=== PATIENT | male | born 1960 | race Caucasian/White ===

== ENCOUNTER 2017-09-15 09:31 | Inpatient (IN) | payer MEDICARE, MEDICAID ==
[~2017-09-15] VITALS: Ht 182.9 cm; Wt 67.0 kg
[~2017-09-15 09:31] MED LIST: ATOV750O2 PO; DARU800T PO; DIPH25CA83 PO; EMTR1TAB6 PO; HYDR-3972 PO; LINE600T36 PO; RITO100T PO
[2017-09-15] MEDS ORDERED: ipratropium/albuterol 3ml nebule NEB ONE (10:50)
[2017-09-15 11:15] LABS: BASOPHILS % (AUTO) 0.1 % (0-1); EOSINOPHILS % (AUTO) 0.7 % (0-6); HEMATOCRIT 37.5 % (42.0-52.0); HEMOGLOBIN 12.7 g/dl (14.0-17.9); LYMPHOCYTES # (AUTO) 0.5 X10'3 (1.1-4.8); LYMPHOCYTES % (AUTO) 13.5 % (21-51); MEAN CORPUSCULAR HEMOGLOBIN 30.2 PG (27.0-31.0); MEAN CORPUSCULAR HGB CONC 33.8 % (33.0-36.5); MEAN CORPUSCULAR VOLUME 89.5 FL (78-98); MEAN PLATELET VOLUME 7.6 FL (7.4-10.4); MONOCYTES # (AUTO) 0.4 X10'3 (0-0.9); MONOCYTES % (AUTO) 9.2 % (2-12); NEUTROPHILS % (AUTO) 76.5 % (42-75); PLATELET COUNT 240 X10'3 (140-440); RED BLOOD COUNT 4.19 X10'6 (4.70-6.10); RED CELL DISTRIBUTION WIDTH 13.3 % (11.5-14.5)
[2017-09-15 11:34] LABS: ALANINE AMINOTRANSFERASE 26 U/L (12-78); ALBUMIN 2.8 G/DL (3.4-5.0); ALBUMIN/GLOBULIN RATIO 0.7 (1.1-1.5); ALKALINE PHOSPHATASE 98 IU/L (46-116); ANION GAP 9 (8-16); ASPARTATE AMINO TRANSFERASE 24 U/L (10-37); BILIRUBIN,TOTAL 0.2 MG/DL (0.1-1.0); BLOOD UREA NITROGEN 7 MG/DL (7-18); BUN/CREATININE RATIO 10.6 (5.4-32.0); CALCIUM 8.3 MG/DL (8.5-10.1); CHLORIDE 105 MMOL/L (99-107); CREATININE 0.66 MG/DL (0.60-1.10); GLUCOSE 104 MG/DL (70-104); POTASSIUM 3.7 MMOL/L (3.5-5.1); SODIUM 141 MMOL/L (135-145); TOTAL PROTEIN 6.8 G/DL (6.4-8.2); eGFR > 90 ML/MIN
[2017-09-15 11:36] LABS: TOTAL CELLS COUNTED 100
[2017-09-15 11:38] LABS: BURR CELLS FEW; PLATELET ESTIMATE NORMAL
[2017-09-15] MEDS ORDERED: normal saline 1000ML IV soln IV ONE (11:40)
[2017-09-15] MEDS ORDERED: vancomycin/NS 1 GM ADD-VANTAGE 250 ML IV ONE (11:45)
[2017-09-15] MEDS ORDERED: levoFLOXACIN-Levaquin 750MG/D5 150 ML IV ONE (11:45)
[2017-09-15] MEDS ORDERED: magnesium 2GM in 50ml NS 50 ML IV PRN (13:45)
[2017-09-15] MEDS ORDERED: potassium Cl 40MEQ/NS 500ml 500 ML IV PRN ×2 (13:45)
[2017-09-15] MEDS ORDERED: mag hydrox/Alum hydrox/simeth 30ml oral suspension PO PRN (13:45)
[2017-09-15] MEDS ORDERED: magnesium Cl slow-release 64mg tablet PO PRN (13:45)
[2017-09-15] MEDS ORDERED: HYDROcodone/acetaminophen 5mg/325mg tablet PO PRN (13:45)
[2017-09-15] MEDS ORDERED: acetaminophen 325mg tablet PO PRN (13:45)
[2017-09-15] MEDS ORDERED: ondansetron/PF 4mg/2ml inj IV PRN (13:45)
[2017-09-15] MEDS ORDERED: bisacodyl 10mg suppository rectal RC PRN (13:45)
[2017-09-15] MEDS ORDERED: potassium Cl 20 mEq SR tablet PO PRN ×2 (13:45)
[2017-09-15] MEDS ORDERED: magnesium hydroxide 30ml (MOM) UD suspension PO PRN (13:45)
[2017-09-15] MEDS ORDERED: magnesium 4gm in 100ml NS 100 ML IV PRN (13:45)
[2017-09-15] MEDS ORDERED: AZIT-63 PO (13:55)
[2017-09-15] MEDS: potassium Cl 20mEq in NS 1,000 ML IV SCH ×2 (14:03→23:43)
[2017-09-15] MEDS: sulfamethoxazole/trimethoprim DS (800/160mg) tablet PO SCH ×2 (14:44→20:44)
[2017-09-15] MEDS: fluconazole 100mg tablet PO SCH (14:44)
[2017-09-15] MEDS ORDERED: NO HOME MEDS (17:21)
[2017-09-15 17:57] VITALS: BP 114/70
[2017-09-15] MEDS ORDERED: FLU VACC QS2017-18 36MOS UP/PF 60 MCG/0.5 ML SYRINGE IMVAC ONE (18:10)
[2017-09-15 19:00] VITALS: BP 118/71
[2017-09-15] MEDS: docusate sod 100mg capsule PO SCH (20:00)
[2017-09-15] MEDS: nystatin 500,000 unit/5ML UD oral suspension PO SCH (20:42)
[2017-09-15] MEDS ORDERED: HYDROcodone/acetaminophen 10/325mg tab PO PRN (23:15)
[2017-09-16] VITALS: BP 119/73
[2017-09-16] MEDS: potassium Cl 20mEq in NS 1,000 ML IV SCH ×2 (04:03→14:58)
[2017-09-16 05:15] LABS: BASOPHILS % (AUTO) 0.5 % (0-1); EOSINOPHILS % (AUTO) 0.9 % (0-6); HEMATOCRIT 36.7 % (42.0-52.0); HEMOGLOBIN 12.3 g/dl (14.0-17.9); LYMPHOCYTES # (AUTO) 0.9 X10'3 (1.1-4.8); LYMPHOCYTES % (AUTO) 25.6 % (21-51); MEAN CORPUSCULAR HEMOGLOBIN 29.9 PG (27.0-31.0); MEAN CORPUSCULAR HGB CONC 33.5 % (33.0-36.5); MEAN CORPUSCULAR VOLUME 89.3 FL (78-98); MEAN PLATELET VOLUME 8.3 FL (7.4-10.4); MONOCYTES # (AUTO) 0.3 X10'3 (0-0.9); MONOCYTES % (AUTO) 9.8 % (2-12); NEUTROPHILS # (AUTO) 2.1 X10'3 (1.8-7.7); NEUTROPHILS % (AUTO) 63.2 % (42-75); PLATELET COUNT 227 X10'3 (140-440); RED BLOOD COUNT 4.11 X10'6 (4.70-6.10); RED CELL DISTRIBUTION WIDTH 13.5 % (11.5-14.5); WHITE BLOOD COUNT 3.4 X10'3 (4.5-11.0)
[2017-09-16 05:35] LABS: ALANINE AMINOTRANSFERASE 29 U/L (12-78); ALBUMIN 2.6 G/DL (3.4-5.0); ALBUMIN/GLOBULIN RATIO 0.7 (1.1-1.5); ALKALINE PHOSPHATASE 94 IU/L (46-116); ANION GAP 9 (8-16); ASPARTATE AMINO TRANSFERASE 21 U/L (10-37); BILIRUBIN,TOTAL 0.1 MG/DL (0.1-1.0); BLOOD UREA NITROGEN 8 MG/DL (7-18); BUN/CREATININE RATIO 10.5 (5.4-32.0); CALCIUM 8.2 MG/DL (8.5-10.1); CHLORIDE 107 MMOL/L (99-107); CREATININE 0.76 MG/DL (0.60-1.10); GLUCOSE 85 MG/DL (70-104); MAGNESIUM 1.8 MG/DL (1.5-2.4); POTASSIUM 4.2 MMOL/L (3.5-5.1); SODIUM 143 MMOL/L (135-145); TOTAL CARBON DIOXIDE 27.2 MMOL/L (24-32); TOTAL PROTEIN 6.3 G/DL (6.4-8.2); eGFR > 90 ML/MIN
[2017-09-16 07:00] VITALS: BP 112/56
[2017-09-16] MEDS: nystatin 500,000 unit/5ML UD oral suspension PO SCH ×2 (08:00→12:53)
[2017-09-16] MEDS: K and/or MAG REPLACEMENT MC SCH (08:00)
[2017-09-16] MEDS: enoxaparin 40mg/0.4ml syringe SUBCUT SCH (08:00)
[2017-09-16] MEDS: docusate sod 100mg capsule PO SCH ×2 (08:00→19:53)
[2017-09-16] MEDS: levoFLOXACIN-Levaquin 750MG/D5 150 ML IV SCH (08:38)
[2017-09-16] MEDS: sulfamethoxazole/trimethoprim DS (800/160mg) tablet PO SCH ×2 (08:39→19:46)
[2017-09-16] MEDS: fluconazole 100mg tablet PO SCH (08:39)
[2017-09-16] MEDS: nicotine 14mg patch - 24hr TD SCH (08:41)
[2017-09-16 11:00] VITALS: BP 108/71
[2017-09-16 13:54] LABS: LACTATE DEHYDROGENASE 145 U/L (85-227)
[2017-09-16 19:00] VITALS: BP 115/72
[2017-09-16] MEDS: HYDROcodone/acetaminophen 10/325mg tab PO PRN (21:43)
[2017-09-17] VITALS: BP 123/78
[2017-09-17] MEDS: potassium Cl 20mEq in NS 1,000 ML IV SCH (03:24)
[2017-09-17] MEDS: HYDROcodone/acetaminophen 10/325mg tab PO PRN (04:57)
[2017-09-17 05:25] LABS: BASOPHILS % (AUTO) 0.6 % (0-1); EOSINOPHILS # (AUTO) 0.1 X10'3 (0-0.9); EOSINOPHILS % (AUTO) 1.5 % (0-6); HEMOGLOBIN 13.6 g/dl (14.0-17.9); LYMPHOCYTES % (AUTO) 25.2 % (21-51); MEAN CORPUSCULAR HEMOGLOBIN 30.1 PG (27.0-31.0); MEAN CORPUSCULAR HGB CONC 34.1 % (33.0-36.5); MEAN CORPUSCULAR VOLUME 88.4 FL (78-98); MEAN PLATELET VOLUME 8.1 FL (7.4-10.4); MONOCYTES # (AUTO) 0.3 X10'3 (0-0.9); MONOCYTES % (AUTO) 8.2 % (2-12); NEUTROPHILS # (AUTO) 2.5 X10'3 (1.8-7.7); NEUTROPHILS % (AUTO) 64.5 % (42-75); PLATELET COUNT 286 X10'3 (140-440); RED BLOOD COUNT 4.52 X10'6 (4.70-6.10); RED CELL DISTRIBUTION WIDTH 13.7 % (11.5-14.5); WHITE BLOOD COUNT 3.8 X10'3 (4.5-11.0)
[2017-09-17 05:37] LABS: ALANINE AMINOTRANSFERASE 38 U/L (12-78); ALBUMIN 2.9 G/DL (3.4-5.0); ALBUMIN/GLOBULIN RATIO 0.7 (1.1-1.5); ALKALINE PHOSPHATASE 109 IU/L (46-116); ANION GAP 8 (8-16); ASPARTATE AMINO TRANSFERASE 22 U/L (10-37); BILIRUBIN,TOTAL 0.1 MG/DL (0.1-1.0); BLOOD UREA NITROGEN 14 MG/DL (7-18); BUN/CREATININE RATIO 19.4 (5.4-32.0); CALCIUM 8.2 MG/DL (8.5-10.1); CHLORIDE 103 MMOL/L (99-107); CREATININE 0.72 MG/DL (0.60-1.10); GLUCOSE 85 MG/DL (70-104); MAGNESIUM 1.8 MG/DL (1.5-2.4); POTASSIUM 4.5 MMOL/L (3.5-5.1); SODIUM 135 MMOL/L (135-145); TOTAL CARBON DIOXIDE 24.5 MMOL/L (24-32); TOTAL PROTEIN 6.8 G/DL (6.4-8.2); eGFR > 90 ML/MIN
[2017-09-17] MEDS: levoFLOXACIN-Levaquin 750MG/D5 150 ML IV SCH (07:52)
[2017-09-17] MEDS ORDERED: LACTOSE-FREE FOOD 237ML (BOOST) PO SCH (08:00)
[2017-09-17] MEDS: K and/or MAG REPLACEMENT MC SCH (08:00)
[2017-09-17] MEDS: enoxaparin 40mg/0.4ml syringe SUBCUT SCH (08:00)
[2017-09-17] MEDS: docusate sod 100mg capsule PO SCH (08:25)
[2017-09-17] MEDS: fluconazole 100mg tablet PO SCH (08:25)
[2017-09-17] MEDS: nicotine 14mg patch - 24hr TD SCH (08:26)
[2017-09-17 08:45] VITALS: BP 106/66
[2017-09-17] MEDS ORDERED: LEVO750T21 PO (10:07)
[2017-09-17] MEDS ORDERED: FLUC200T PO (10:07)
[2017-09-17] MEDS ORDERED: BACDS PO (10:07)
[2017-09-17 15:18] LABS: % CD 4 POS. LYMPH 1.5 % (30.8-58.5); ABSOLUTE CD 4 HELPER 11 (359-1519); BASOS 0 % (Not Estab.); EOS 1 % (Not Estab.); HEMATOCRIT 34.4 % (37.5-51.0); HEMOGLOBIN 11.3 g/dL (13.0-17.7); LYMPHS 18 % (Not Estab.); LYMPHS (ABSOLUTE) 0.7 x10E3/uL (0.7-3.1); MCH 29.6 pg (26.6-33.0); MCHC 32.8 g/dL (31.5-35.7); MCV 90 fL (79-97); MONOCYTES 9 % (Not Estab.); MONOCYTES (ABSOLUTE) 0.4 x10E3/uL (0.1-0.9); NEUTROPHILS 71 % (Not Estab.); NEUTROPHILS (ABSOLUTE) 2.8 x10E3/uL (1.4-7.0); PLATELETS 233 x10E3/uL (150-379); RBC 3.82 x10E6/uL (4.14-5.80)
[2017-09-18] MEDS ORDERED: sulfamethoxazole/trimethoprim DS (800/160mg) tablet PO SCH (08:00)
[2017-09-19 15:12] LABS: HIV LOG 10 4.486 (.); HIV-1 RNA by PCR 30630 copies/mL (.)
== END 2017-09-17 11:00 | disposition home or self-care (01) | DRG 974 ==
LOC: ER 09:32 → ED HOLD 13:43 → EDBEDREQ 16:53 → SUR 3N 17:16
PROVIDERS: ADMIT Internal Medicine; ATTEND Internal Medicine
DX: B20 Human immunodeficiency virus [HIV] disease (principal); B25.0 Cytomegaloviral pneumonitis; B37.89 Other sites of candidiasis; E44.0 Moderate protein-calorie malnutrition; B37.0 Candidal stomatitis; F17.200 Nicotine dependence, unspecified, uncomplicated; F12.90 Cannabis use, unspecified, uncomplicated; Z68.20 Body mass index [BMI] 20.0-20.9, adult; Z86.14 Personal history of Methicillin resistant Staphylococcus aureus infection; Z87.01 Personal history of pneumonia (recurrent); Z23 Encounter for immunization; Z88.8 Allergy status to other drugs, medicaments and biological substances; Z71.6 Tobacco abuse counseling
CPT/HCPCS: 36415; 71046; 80053; 83605; 83615; 83735; 84145; 85025; 86361; 87040; 87070; 87535; 94640; 94760; 96365; 99285; J1650; J1956; J3370; J7030; Q2037

== ENCOUNTER 2018-07-30 17:07 | Inpatient (IN) | payer MEDICARE, MEDICAID ==
[~2018-07-30] VITALS: Ht 182.9 cm; Wt 60.8 kg
[~2018-07-30 17:07] MED LIST changes: -ATOV750O2 PO; +BACDS PO; -DARU800T PO; -DIPH25CA83 PO; -EMTR1TAB6 PO; +FLUC200T PO; -HYDR-3972 PO; -LINE600T36 PO; -RITO100T PO
[2018-07-30 18:10] LABS: BASOPHILS % (AUTO) 0.7 % (0-1); EOSINOPHILS % (AUTO) 0.3 % (0-6); HEMATOCRIT 44.4 % (42.0-52.0); HEMOGLOBIN 14.4 g/dl (14.0-17.9); LYMPHOCYTES # (AUTO) 0.6 X10'3 (1.1-4.8); LYMPHOCYTES % (AUTO) 28.1 % (21-51); MEAN CORPUSCULAR HEMOGLOBIN 29.5 PG (27.0-31.0); MEAN CORPUSCULAR HGB CONC 32.4 % (33.0-36.5); MEAN CORPUSCULAR VOLUME 90.9 FL (78-98); MEAN PLATELET VOLUME 8.4 FL (7.4-10.4); MONOCYTES # (AUTO) 0.3 X10'3 (0-0.9); MONOCYTES % (AUTO) 13.6 % (2-12); NEUTROPHILS # (AUTO) 1.3 X10'3 (1.8-7.7); NEUTROPHILS % (AUTO) 57.3 % (42-75); PLATELET COUNT 224 X10'3 (140-440); RED BLOOD COUNT 4.88 X10'6 (4.70-6.10); RED CELL DISTRIBUTION WIDTH 13.6 % (11.5-14.5); WHITE BLOOD COUNT 2.2 X10'3 (4.5-11.0)
[2018-07-30 18:28] LABS: PARTIAL THROMBOPLASTIN TIME 27 SECONDS (22-32); PROTHROMBIN TIME 10.1 SECONDS (9.0-12.0)
[2018-07-30 18:36] LABS: ALANINE AMINOTRANSFERASE 39 U/L (12-78); ALBUMIN 3.2 G/DL (3.4-5.0); ALBUMIN/GLOBULIN RATIO 0.8 (1.1-1.5); ALKALINE PHOSPHATASE 860 IU/L (46-116); ANION GAP 10 (8-16); ASPARTATE AMINO TRANSFERASE 25 U/L (10-37); BILIRUBIN,TOTAL 0.2 MG/DL (0.1-1.0); BLOOD UREA NITROGEN 7 MG/DL (7-18); BUN/CREATININE RATIO 9.3 (5.4-32.0); CALCIUM 8.4 MG/DL (8.5-10.1); CHLORIDE 103 MMOL/L (99-107); CREATININE 0.75 MG/DL (0.60-1.10); GLUCOSE 73 MG/DL (70-104); SODIUM 144 MMOL/L (135-145); TOTAL PROTEIN 7.1 G/DL (6.4-8.2); eGFR > 90 ML/MIN
[2018-07-30 18:41] LABS: POTASSIUM 2.2 MMOL/L (3.5-5.1)
[2018-07-30 19:00] LABS: PLATELET ESTIMATE NORMAL; TOTAL CELLS COUNTED 100
[2018-07-30] MEDS ORDERED: potassium Cl 20 mEq SR tablet PO ONE (19:00)
[2018-07-30] MEDS: potassium 10mEq/100ml NS w/LIDOcaine (10mg/bag) IV SCH ×2 (19:00→23:41)
[2018-07-30] MEDS ORDERED: ondansetron/PF 4mg/2ml inj IV ONE (19:50)
[2018-07-30] MEDS ORDERED: BICT1TAB PO (20:34)
[2018-07-30] MEDS ORDERED: ONDA4TAB6 PO (20:34)
[2018-07-30] MEDS ORDERED: HYDR-4353 PO (20:34)
[2018-07-30] MEDS: potassium Cl 20mEq in NS 1,000 ML IV SCH (20:56)
[2018-07-30] MEDS ORDERED: bisacodyl 10mg suppository rectal RC PRN (21:00)
[2018-07-30] MEDS ORDERED: acetaminophen 325mg tablet PO PRN ×2 (21:00)
[2018-07-30] MEDS ORDERED: potassium Cl 40MEQ/NS 500ml 500 ML IV PRN ×2 (21:00)
[2018-07-30] MEDS ORDERED: morphine 4 MG/ML inj SYRINge IV PRN ×2 (21:00)
[2018-07-30] MEDS ORDERED: diphenhydrAMINE 50 mg/ml inj IV PRN (21:00)
[2018-07-30] MEDS ORDERED: magnesium hydroxide 30ml (MOM) UD suspension PO PRN (21:00)
[2018-07-30] MEDS ORDERED: mag hydrox/Alum hydrox/simeth 30ml oral suspension PO PRN (21:00)
[2018-07-30] MEDS ORDERED: diphenhydrAMINE 25mg capsule PO PRN (21:00)
[2018-07-30] MEDS ORDERED: ondansetron/PF 4mg/2ml inj IV PRN (21:00)
[2018-07-30] MEDS ORDERED: potassium Cl 20 mEq SR tablet PO PRN (21:00)
[2018-07-30 21:15] LABS: CLARITY,URINE CLEAR (Clear); COLOR,URINE YELLOW (Yellow); GLUCOSE, URINE NEGATIVE (Neg); KETONES,URINE TRACE mg/dl (Neg); LEUKOCYTE ESTERASE ,URINE NEGATIVE (Neg); NITRITES, URINE NEGATIVE (Neg); OCCULT BLOOD,URINE NEGATIVE (Neg); PROTEIN,URINE TRACE mg/dl (Neg); UROBILINOGEN,URINE 0.2 E.U/dL (0.2-1.0)
[2018-07-30 21:27] LABS: URINE AMPHETAMINE SCREEN NEGATIVE (Neg); URINE BARBITUATE SCREEN NEGATIVE (Neg); URINE BENZODIAZEPINES SCREEN NEGATIVE (Neg); URINE CANNABINOID SCREEN POSITIVE (Neg); URINE COCAINE SCREEN NEGATIVE (Neg); URINE METHADONE SCREEN NEGATIVE (Neg); URINE OPIATE SCREEN NEGATIVE (Neg); URINE PHENCYCLIDINE SCREEN NEGATIVE (Neg)
--- NOTE | 2018-07-30 21:38 | NUR ---
Call to tele to give report told nurse is on break and would call back.
[2018-07-30 21:41] LABS: UA COLLECTION TYPE CLN CATCH MIDSTREAM
[2018-07-30 21:42] LABS: MUCUS STRANDS MODERATE /LPF (Neg); RBC,URINE 0-2 /HPF (0-2); SQUAMOUS EPITHELIAL CELL,UR MODERATE /LPF (FEW); WBC,URINE 0-4 /HPF (0-4)
[2018-07-30 21:43] LABS: BACTERIA,URINE FEW /HPF (Neg)
[2018-07-30 21:51] LABS: MAGNESIUM 1.3 MG/DL (1.5-2.4)
--- NOTE | 2018-07-30 21:57 | NUR ---
Patient in room ED 1. I have received report from ALIZA Roberson and had the opportunity to ask questions and assume patient care.
[2018-07-30 22:00] VITALS: BP 119/71
[2018-07-30] MEDS ORDERED: CefTRIAXone 2gm/D5W 50ml 50 ML IV ONE (22:00)
[2018-07-30] MEDS ORDERED: normal saline 1000ML IV soln IV ONE (22:00)
[2018-07-30] MEDS: famotidine 20mg tablet PO SCH (22:07)
[2018-07-30 22:13] LABS: HEMOGLOBIN A1C 5.6 % (4.5-6.2)
[2018-07-30] MEDS ORDERED: HYDROcodone/acetaminophen 10/325mg tab PO PRN (23:05)
[2018-07-30] MEDS ORDERED: magnesium 4gm in 100ml NS 100 ML IV PRN (23:15)
[2018-07-30] MEDS: HYDROcodone/acetaminophen 10/325mg tab PO PRN (23:39)
[2018-07-30] MEDS: potassium Cl 20 mEq SR tablet PO PRN (23:39)
[2018-07-31 00:08] LABS: OCCULT BLOOD STOOL NEGATIVE (Neg)
[2018-07-31] MEDS: loperamide 2mg capsule PO PRN ×3 (00:26→19:23)
[2018-07-31] MEDS: magnesium Cl slow-release 64mg tablet PO PRN ×2 (00:27→12:52)
[2018-07-31 02:00] VITALS: BP 114/65
[2018-07-31] MEDS: potassium Cl 20mEq in NS 1,000 ML IV SCH ×3 (02:25→12:11)
--- NOTE | 2018-07-31 06:35 | NUR ---
Problems reprioritized. Patient report given, questions answered & plan of care reviewed with ALIZA Thomson.
--- NOTE | 2018-07-31 06:39 | NUR ---
Patient in room PCU 3010. I have received report from Mimi ABRAMS and had the opportunity to ask questions and assume patient care.
[2018-07-31 07:09] VITALS: BP 109/73
[2018-07-31] MEDS: docusate sod 100mg capsule PO SCH ×2 (08:00→19:14)
[2018-07-31] MEDS: Neutra Phos packet PO SCH ×3 (08:10→21:47)
[2018-07-31] MEDS: heparin, porcine 5000 units/ml vial SQ SCH ×2 (08:10→19:23)
[2018-07-31] MEDS: HYDROcodone/acetaminophen 10/325mg tab PO PRN ×2 (08:15→19:24)
--- NOTE | 2018-07-31 09:25 | NUR ---
Informed MD that med rec needs to be addressed. aware.
[2018-07-31 10:54] LABS: BASOPHILS % (AUTO) 0.7 % (0-1); EOSINOPHILS % (AUTO) 0.3 % (0-6); HEMATOCRIT 36.2 % (42.0-52.0); HEMOGLOBIN 11.9 g/dl (14.0-17.9); LYMPHOCYTES # (AUTO) 0.5 X10'3 (1.1-4.8); LYMPHOCYTES % (AUTO) 34.5 % (21-51); MEAN CORPUSCULAR HGB CONC 32.8 % (33.0-36.5); MEAN CORPUSCULAR VOLUME 91.6 FL (78-98); MEAN PLATELET VOLUME 8.2 FL (7.4-10.4); MONOCYTES # (AUTO) 0.2 X10'3 (0-0.9); MONOCYTES % (AUTO) 11.2 % (2-12); NEUTROPHILS # (AUTO) 0.8 X10'3 (1.8-7.7); NEUTROPHILS % (AUTO) 53.3 % (42-75); PLATELET COUNT 182 X10'3 (140-440); RED BLOOD COUNT 3.95 X10'6 (4.70-6.10); RED CELL DISTRIBUTION WIDTH 13.5 % (11.5-14.5); WHITE BLOOD COUNT 1.5 X10'3 (4.5-11.0)
[2018-07-31 11:12] LABS: ANION GAP 6 (8-16); BILIRUBIN,TOTAL 0.1 MG/DL (0.1-1.0); BLOOD UREA NITROGEN 8 MG/DL (7-18); BUN/CREATININE RATIO 13.8 (5.4-32.0); CALCIUM 7.5 MG/DL (8.5-10.1); CHLORIDE 108 MMOL/L (99-107); CREATININE 0.58 MG/DL (0.60-1.10); GLUCOSE 99 MG/DL (70-104); SODIUM 140 MMOL/L (135-145); TOTAL CARBON DIOXIDE 25.8 MMOL/L (24-32); TOTAL PROTEIN 5.1 G/DL (6.4-8.2); eGFR > 90 ML/MIN
[2018-07-31 11:13] LABS: ALANINE AMINOTRANSFERASE 27 U/L (12-78); ALBUMIN 2.1 G/DL (3.4-5.0); ALBUMIN/GLOBULIN RATIO 0.7 (1.1-1.5); ALKALINE PHOSPHATASE 578 IU/L (46-116); ASPARTATE AMINO TRANSFERASE 17 U/L (10-37)
[2018-07-31 11:17] LABS: CHOL/HDL RATIO 2.5 (0.00-4.99); CHOLESTEROL 75 MG/DL (0-200); HDL CHOLESTEROL 30 MG/DL (35-60); LDL CHOLESTEROL 42 MG/DL (50-100); MAGNESIUM 1.3 MG/DL (1.5-2.4); TRIGLYCERIDES 42 MG/DL (20-135)
[2018-07-31] MEDS: K and/or MAG REPLACEMENT MC SCH (11:23)
[2018-07-31] MEDS: potassium Cl 20 mEq SR tablet PO PRN ×3 (11:28→19:24)
[2018-07-31 11:31] LABS: TOTAL CELLS COUNTED 100
[2018-07-31 11:32] LABS: PLATELET ESTIMATE NORMAL
[2018-07-31 12:32] VITALS: BP 112/71
[2018-07-31 14:16] LABS: C DIFF SPECIMEN=DIARRHEA? ACCEPTABLE; C DIFFICILE TOXINS A&B NEGATIVE (Neg)
[2018-07-31 14:18] LABS: C DIFF ANTIGEN NEGATIVE (NEGATIVE)
[2018-07-31 16:02] VITALS: BP 113/69
--- NOTE | 2018-07-31 16:29 | NUR ---
Malnutrition consult, patient reported loss of 50 lbs in 6 months. Patient seen at bedside and reports good appetite and eating 100% of low fiber/soft diet. Per documented weight history patient has lost 18 lbs in 11 months since last August. Patient has c/o multiple bouts of diarrhea daily. Provided written diarrhea medical nutrition therapy handout with verbal review and discussed stool thickening foods to eat and order from dietary. Obtained food preferences and d/w Dietary. No malnutrition at this time. Will continue to follow. Addendum: 07/31/18 at [address] Amended: Links added.
[2018-07-31 18:00] VITALS: BP 106/59
--- NOTE | 2018-07-31 18:37 | NUR ---
Patient in room PCU 3010. I have received report from ALIZA Thomson and had the opportunity to ask questions and assume patient care.
--- NOTE | 2018-07-31 18:41 | NUR ---
Problems reprioritized. Patient report given, questions answered & plan of care reviewed with Arlen ABRAMS.
[2018-07-31] MEDS: famotidine 20mg tablet PO SCH (21:47)
[2018-07-31 22:00] VITALS: BP 109/67
[2018-07-31] MEDS: TENOFOVIR ALAFENAMIDE PO SCH (22:00)
[2018-07-31] MEDS: EMTRICITABINE PO SCH (22:00)
[2018-07-31] MEDS ORDERED: vancomycin/NS 1 GM ADD-VANTAGE 250 ML IV SCH (22:00)
[2018-07-31] MEDS: BICTEGRAVIR PO SCH (22:00)
[2018-08-01] MEDS: potassium Cl 20mEq in NS 1,000 ML IV SCH ×3 (00:49→22:56)
[2018-08-01] MEDS: magnesium Cl slow-release 64mg tablet PO PRN (00:50)
[2018-08-01 02:00] VITALS: BP 117/72
[2018-08-01] MEDS: loperamide 2mg capsule PO PRN ×2 (03:38→18:58)
--- NOTE | 2018-08-01 04:48 | NUR ---
Lab made aware that patients labs need to be drawn, as his extended IV is not accessible.
--- NOTE | 2018-08-01 06:00 | NUR ---
Patient in room PCU 3010. I have received report from ALIZA Mckinley and had the opportunity to ask questions and assume patient care. Addendum: 08/01/18 at 0644 by Danielle Jimenez RN Amended: Links added.
--- NOTE | 2018-08-01 06:41 | NUR ---
Problems reprioritized. Patient report given, questions answered & plan of care reviewed with ALIZA Santos.
[2018-08-01 07:00] VITALS: BP 109/71
[2018-08-01 07:15] LABS: ALANINE AMINOTRANSFERASE 38 U/L (12-78); ALBUMIN 2.8 G/DL (3.4-5.0); ALBUMIN/GLOBULIN RATIO 0.8 (1.1-1.5); ALKALINE PHOSPHATASE 676 IU/L (46-116); ANION GAP 10 (8-16); ASPARTATE AMINO TRANSFERASE 25 U/L (10-37); BILIRUBIN,TOTAL 0.2 MG/DL (0.1-1.0); BLOOD UREA NITROGEN 10 MG/DL (7-18); BUN/CREATININE RATIO 20.8 (5.4-32.0); CALCIUM 8.4 MG/DL (8.5-10.1); CHLORIDE 107 MMOL/L (99-107); CREATININE 0.48 MG/DL (0.60-1.10); GLUCOSE 84 MG/DL (70-104); HEMATOCRIT 40.2 % (42.0-52.0); HEMOGLOBIN 13.3 g/dl (14.0-17.9); MAGNESIUM 1.9 MG/DL (1.5-2.4); MEAN CORPUSCULAR HEMOGLOBIN 29.7 PG (27.0-31.0); MEAN CORPUSCULAR HGB CONC 33.2 % (33.0-36.5); MEAN CORPUSCULAR VOLUME 89.5 FL (78-98); MEAN PLATELET VOLUME 8.5 FL (7.4-10.4); PLATELET COUNT 206 X10'3 (140-440); POTASSIUM 4.4 MMOL/L (3.5-5.1); RED BLOOD COUNT 4.49 X10'6 (4.70-6.10); RED CELL DISTRIBUTION WIDTH 15.2 % (11.5-14.5); SODIUM 139 MMOL/L (135-145); TOTAL PROTEIN 6.5 G/DL (6.4-8.2); WHITE BLOOD COUNT 1.8 X10'3 (4.5-11.0); eGFR > 90 ML/MIN
[2018-08-01] MEDS ORDERED: vancomycin 1,000mg inj IV SCH (08:00)
[2018-08-01] MEDS: K and/or MAG REPLACEMENT MC SCH (08:00)
[2018-08-01] MEDS: docusate sod 100mg capsule PO SCH ×2 (08:00→20:00)
[2018-08-01] MEDS: heparin, porcine 5000 units/ml vial SQ SCH ×2 (09:41→20:22)
[2018-08-01] MEDS: Neutra Phos packet PO SCH ×3 (09:41→20:22)
[2018-08-01] MEDS: fluconazole 100mg tablet PO SCH (10:10)
[2018-08-01] MEDS: EMTRICITABINE PO SCH (10:11)
[2018-08-01] MEDS: BICTEGRAVIR PO SCH (10:11)
[2018-08-01] MEDS: TENOFOVIR ALAFENAMIDE PO SCH (10:11)
[2018-08-01 10:17] LABS: ANISOCYTOSIS 1+; PLATELET ESTIMATE NORMAL; POIKILOCYTOSIS 1+; ROULEAUX 1+; TOTAL CELLS COUNTED 100
[2018-08-01 11:00] VITALS: BP 111/72
[2018-08-01] MEDS ORDERED: nicotine prolacrilex 4mg gum BC PRN (12:05)
[2018-08-01] MEDS ORDERED: nicotine prolacrilex 2mg gum BC PRN (12:12)
[2018-08-01] MEDS: vancomycin/NS 1 GM ADD-VANTAGE 250 ML IV SCH (13:36)
[2018-08-01 15:00] VITALS: BP 118/68
[2018-08-01 18:00] VITALS: BP 108/60
--- NOTE | 2018-08-01 18:28 | NUR ---
Problems reprioritized. Patient report given, questions answered & plan of care reviewed with ALIZA Jimenez. Addendum: 08/01/18 at 1829 by Danielle Jimenez RN Amended: Links added.
[2018-08-01] MEDS: HYDROcodone/acetaminophen 10/325mg tab PO PRN (18:58)
[2018-08-01] MEDS: famotidine 20mg tablet PO SCH (20:20)
[2018-08-01 22:00] VITALS: BP 106/50
[2018-08-02] MEDS: vancomycin/NS 1 GM ADD-VANTAGE 250 ML IV SCH ×2 (01:18→12:52)
[2018-08-02 02:00] VITALS: BP 103/67
[2018-08-02] MEDS: HYDROcodone/acetaminophen 10/325mg tab PO PRN ×3 (02:14→22:02)
--- NOTE | 2018-08-02 02:35 | NUR ---
Pt IV infiltrated alf through Vanco dose. Pt refuses to have another IV started due to "bad veins". Pt states that an ultrasound or a PICC line is required to start an IV on him. Rn looked at pt arm with tourniquet and did not see any veins that pt agreed rn could start an IV in, but RN saw a vein that could be started. Pt continues to refuse an IV start. Pt educated on importance of antibiotic regimen, dangers of not having an IV, pt continues to insist on an "ultrasound" before an IV is started..
--- NOTE | 2018-08-02 02:44 | NUR ---
Pt has agreed to allow charge account authorizer to attempt one IV on him.
--- NOTE | 2018-08-02 03:10 | NUR ---
Henna from ER with patient to use ultrasound for an IV attempt.
--- NOTE | 2018-08-02 06:56 | NUR ---
Problems reprioritized. Patient report given, questions answered & plan of care reviewed with Armida ABRAMS
--- NOTE | 2018-08-02 07:01 | NUR ---
Patient in room PCU 3010. I have received report from Tony ABRAMS and had the opportunity to ask questions and assume patient care. Patient awake and watching TV.
[2018-08-02 07:14] VITALS: BP 95/59
[2018-08-02 07:16] LABS: ALANINE AMINOTRANSFERASE 40 U/L (12-78); ALBUMIN 2.6 G/DL (3.4-5.0); ALBUMIN/GLOBULIN RATIO 0.7 (1.1-1.5); ALKALINE PHOSPHATASE 575 IU/L (46-116); ANION GAP 11 (8-16); ASPARTATE AMINO TRANSFERASE 31 U/L (10-37); BILIRUBIN,TOTAL 0.2 MG/DL (0.1-1.0); BLOOD UREA NITROGEN 14 MG/DL (7-18); BUN/CREATININE RATIO 24.6 (5.4-32.0); CHLORIDE 108 MMOL/L (99-107); CREATININE 0.57 MG/DL (0.60-1.10); GLUCOSE 81 MG/DL (70-104); MAGNESIUM 1.9 MG/DL (1.5-2.4); POTASSIUM 4.5 MMOL/L (3.5-5.1); SODIUM 139 MMOL/L (135-145); TOTAL CARBON DIOXIDE 20.4 MMOL/L (24-32); TOTAL PROTEIN 6.1 G/DL (6.4-8.2); eGFR > 90 ML/MIN
[2018-08-02] MEDS: docusate sod 100mg capsule PO SCH (07:21)
[2018-08-02 07:31] LABS: BASOPHILS % (AUTO) 0.5 % (0-1); EOSINOPHILS % (AUTO) 0.4 % (0-6); HEMATOCRIT 40.2 % (42.0-52.0); HEMOGLOBIN 13.2 g/dl (14.0-17.9); LYMPHOCYTES # (AUTO) 0.4 X10'3 (1.1-4.8); LYMPHOCYTES % (AUTO) 26.2 % (21-51); MEAN CORPUSCULAR HEMOGLOBIN 29.7 PG (27.0-31.0); MEAN CORPUSCULAR HGB CONC 32.8 % (33.0-36.5); MEAN CORPUSCULAR VOLUME 90.7 FL (78-98); MEAN PLATELET VOLUME 8.2 FL (7.4-10.4); MONOCYTES # (AUTO) 0.1 X10'3 (0-0.9); MONOCYTES % (AUTO) 7.2 % (2-12); NEUTROPHILS % (AUTO) 65.7 % (42-75); PLATELET COUNT 171 X10'3 (140-440); RED BLOOD COUNT 4.43 X10'6 (4.70-6.10); RED CELL DISTRIBUTION WIDTH 15.1 % (11.5-14.5); WHITE BLOOD COUNT 1.5 X10'3 (4.5-11.0)
[2018-08-02] MEDS: K and/or MAG REPLACEMENT MC SCH (08:00)
[2018-08-02] MEDS: BICTEGRAVIR PO SCH (08:39)
[2018-08-02] MEDS: TENOFOVIR ALAFENAMIDE PO SCH (08:39)
[2018-08-02] MEDS: heparin, porcine 5000 units/ml vial SQ SCH ×2 (08:39→20:08)
[2018-08-02] MEDS: EMTRICITABINE PO SCH (08:39)
[2018-08-02] MEDS: fluconazole 100mg tablet PO SCH (08:42)
[2018-08-02] MEDS: potassium Cl 20mEq in NS 1,000 ML IV SCH (08:56)
[2018-08-02] MEDS: loperamide 2mg capsule PO PRN ×2 (08:57→20:09)
[2018-08-02 08:59] LABS: LARGE PLATELETS FEW; PLATELET ESTIMATE NORMAL; TOTAL CELLS COUNTED 100
[2018-08-02 12:57] VITALS: BP 100/66
[2018-08-02 16:09] VITALS: BP 116/73
--- NOTE | 2018-08-02 18:10 | NUR ---
Patient in room PCU 3010. I have received report from Armida ABRAMS and had the opportunity to ask questions and assume patient care. at bedside, pt resting comfortably, in no apparent distress at this time.
--- NOTE | 2018-08-02 18:33 | NUR ---
Problems reprioritized. Patient report given, questions answered & plan of care reviewed with Alfreda ABRAMS.
[2018-08-02 19:00] VITALS: BP 118/73
[2018-08-02] MEDS: famotidine 20mg tablet PO SCH (20:08)
[2018-08-02 23:00] VITALS: BP 115/71
[2018-08-03] MEDS ORDERED: VANCOMYCIN LEVEL IV ONE (00:30)
[2018-08-03] MEDS: temazepam 15mg capsule PO PRN (00:32)
[2018-08-03 00:48] LABS: BASOPHILS % (AUTO) 0.4 % (0-1); EOSINOPHILS % (AUTO) 0.5 % (0-6); HEMOGLOBIN 13.5 g/dl (14.0-17.9); LYMPHOCYTES # (AUTO) 0.6 X10'3 (1.1-4.8); LYMPHOCYTES % (AUTO) 28.5 % (21-51); MEAN CORPUSCULAR HEMOGLOBIN 29.7 PG (27.0-31.0); MEAN CORPUSCULAR HGB CONC 32.9 % (33.0-36.5); MEAN CORPUSCULAR VOLUME 90.1 FL (78-98); MEAN PLATELET VOLUME 8.6 FL (7.4-10.4); MONOCYTES # (AUTO) 0.2 X10'3 (0-0.9); MONOCYTES % (AUTO) 10.8 % (2-12); NEUTROPHILS # (AUTO) 1.4 X10'3 (1.8-7.7); NEUTROPHILS % (AUTO) 59.8 % (42-75); PLATELET COUNT 222 X10'3 (140-440); RED BLOOD COUNT 4.56 X10'6 (4.70-6.10); RED CELL DISTRIBUTION WIDTH 15.4 % (11.5-14.5); WHITE BLOOD COUNT 2.3 X10'3 (4.5-11.0)
[2018-08-03 00:58] LABS: ALANINE AMINOTRANSFERASE 58 U/L (12-78); ALBUMIN/GLOBULIN RATIO 0.8 (1.1-1.5); ALKALINE PHOSPHATASE 590 IU/L (46-116); ANION GAP 10 (8-16); ASPARTATE AMINO TRANSFERASE 43 U/L (10-37); BILIRUBIN,TOTAL 0.1 MG/DL (0.1-1.0); BLOOD UREA NITROGEN 15 MG/DL (7-18); BUN/CREATININE RATIO 20.5 (5.4-32.0); CALCIUM 8.2 MG/DL (8.5-10.1); CHLORIDE 106 MMOL/L (99-107); CREATININE 0.73 MG/DL (0.60-1.10); GLUCOSE 89 MG/DL (70-104); POTASSIUM 4.4 MMOL/L (3.5-5.1); SODIUM 138 MMOL/L (135-145); TOTAL CARBON DIOXIDE 22.4 MMOL/L (24-32); TOTAL PROTEIN 6.9 G/DL (6.4-8.2); eGFR > 90 ML/MIN
[2018-08-03] MEDS: vancomycin/NS 1 GM ADD-VANTAGE 250 ML IV SCH (01:39)
[2018-08-03 03:04] VITALS: BP 108/71
[2018-08-03 05:59] LABS: TOTAL CELLS COUNTED 100
[2018-08-03 06:00] LABS: ANISOCYTOSIS 1+; ELLIPTOCYTES FEW; PLATELET ESTIMATE NORMAL
--- NOTE | 2018-08-03 06:10 | NUR ---
Problems reprioritized. Patient report given, questions answered & plan of care reviewed with Henna ABRAMS.
[2018-08-03] MEDS: K and/or MAG REPLACEMENT MC SCH (07:22)
[2018-08-03] MEDS: fluconazole 100mg tablet PO SCH (07:22)
[2018-08-03] MEDS: EMTRICITABINE PO SCH (07:22)
[2018-08-03] MEDS: BICTEGRAVIR PO SCH (07:22)
[2018-08-03] MEDS: TENOFOVIR ALAFENAMIDE PO SCH (07:22)
[2018-08-03] MEDS: heparin, porcine 5000 units/ml vial SQ SCH ×2 (07:23→21:07)
[2018-08-03 07:30] VITALS: BP 107/73
[2018-08-03] MEDS: loperamide 2mg capsule PO PRN ×2 (09:04→15:56)
[2018-08-03 11:00] VITALS: BP 103/78
--- NOTE | 2018-08-03 11:14 | NUR ---
Initial: Pt admit w/ diarrhea x3 months, hx IVDA and HIV non-compliance w/ meds which is resulting in current diarrhea per ID MD note. PO 100% low-residue diet meeting needs. RD d/w RN for neutropenic diet w/ WBC 2.3 as well as rechecking Phos since last 2.0 on 07/30 and diarrhea per MD approval. Receiving Imodium for diarrhea w/ BMx5 past 24 hrs. C. diff negative. Pt also had MRSA infection to hand cut. Will continue to monitor. Rec: 1. continue low residue diet; add neutropenic given hx per MD 2. wt per rx Addendum: 08/03/18 at [address] Amended: Links added.
[2018-08-03 11:45] LABS: PHOSPHORUS 2.9 MG/DL (2.3-4.5)
[2018-08-03] MEDS: Neutra Phos packet PO SCH ×2 (12:38→21:06)
[2018-08-03] MEDS: vancomycin inj 1,250 MG in normal saline 250ml IV soln 250 ML IV SCH (14:45)
[2018-08-03 14:54] LABS: % CD 4 POS. LYMPH 1.8 % (30.8-58.5); ABSOLUTE CD 4 HELPER 11 /uL (359-1519); BASOS 1 % (Not Estab.); EOS 0 % (Not Estab.); HEMATOCRIT 35.5 % (37.5-51.0); HEMOGLOBIN 11.9 g/dL (13.0-17.7); LYMPHS 40 % (Not Estab.); LYMPHS (ABSOLUTE) 0.6 x10E3/uL (0.7-3.1); MCH 30.1 pg (26.6-33.0); MCHC 33.5 g/dL (31.5-35.7); MCV 90 fL (79-97); MONOCYTES 12 % (Not Estab.); MONOCYTES (ABSOLUTE) 0.2 x10E3/uL (0.1-0.9); NEUTROPHILS 46 % (Not Estab.); NEUTROPHILS (ABSOLUTE) 0.8 x10E3/uL (1.4-7.0); PLATELETS 202 x10E3/uL (150-379); RBC 3.96 x10E6/uL (4.14-5.80); RDW 15.4 % (12.3-15.4); WBC 1.6 x10E3/uL (3.4-10.8)
[2018-08-03] MEDS ORDERED: LORazepam 2 mg/ml vial IV PRN (15:45)
[2018-08-03 16:30] VITALS: BP 130/77
[2018-08-03] MEDS: potassium Cl 20 mEq SR tablet PO SCH (17:53)
[2018-08-03 18:00] VITALS: BP 120/85
--- NOTE | 2018-08-03 18:01 | NUR ---
patient refusing IV start without ultrasound. PICC nurse unavailable. Unable to complete vancomycin infusion.
--- NOTE | 2018-08-03 18:15 | NUR ---
Received report from ALIZA Aguillon. Patient is resting with eyes closed on relaxed and unlabored respirations on room air, in no apparent distress. Call light and items of frequent use within reach. Will continue to monitor.
--- NOTE | 2018-08-03 18:45 | NUR ---
Problems reprioritized. Patient report given, questions answered & plan of care reviewed with ALIZA Lo.
[2018-08-03] MEDS: famotidine 20mg tablet PO SCH (21:05)
[2018-08-03] MEDS: magnesium oxide 400mg tablet PO SCH (21:06)
[2018-08-03 22:00] VITALS: BP 120/85
[2018-08-04] MEDS: vancomycin inj 1,250 MG in normal saline 250ml IV soln 250 ML IV SCH (00:18)
--- NOTE | 2018-08-04 00:19 | NUR ---
Patient refusing to have IV placed in; 3 RNs attempted to educate and convince the patient the importance of having one - patient still refusing.
[2018-08-04] MEDS: clindamycin 150mg capsule PO SCH ×4 (01:30→19:35)
--- NOTE | 2018-08-04 02:00 | NUR ---
Patient refused 0200 Vital signs to be obtained.
[2018-08-04 05:34] LABS: BASOPHILS % (AUTO) 0.7 % (0-1); EOSINOPHILS % (AUTO) 0.5 % (0-6); HEMATOCRIT 42.6 % (42.0-52.0); HEMOGLOBIN 14.3 g/dl (14.0-17.9); LYMPHOCYTES # (AUTO) 0.6 X10'3 (1.1-4.8); LYMPHOCYTES % (AUTO) 26.4 % (21-51); MEAN CORPUSCULAR HGB CONC 33.6 % (33.0-36.5); MEAN CORPUSCULAR VOLUME 89.2 FL (78-98); MEAN PLATELET VOLUME 8.6 FL (7.4-10.4); MONOCYTES # (AUTO) 0.2 X10'3 (0-0.9); MONOCYTES % (AUTO) 9.6 % (2-12); NEUTROPHILS # (AUTO) 1.3 X10'3 (1.8-7.7); NEUTROPHILS % (AUTO) 62.8 % (42-75); PLATELET COUNT 247 X10'3 (140-440); RED BLOOD COUNT 4.77 X10'6 (4.70-6.10); RED CELL DISTRIBUTION WIDTH 14.9 % (11.5-14.5); WHITE BLOOD COUNT 2.1 X10'3 (4.5-11.0)
[2018-08-04 05:38] LABS: GLUCOSE 91 MG/DL (70-104); SODIUM 139 MMOL/L (135-145)
[2018-08-04 05:39] LABS: ALANINE AMINOTRANSFERASE 75 U/L (12-78); ALBUMIN 3.1 G/DL (3.4-5.0); ALBUMIN/GLOBULIN RATIO 0.8 (1.1-1.5); ALKALINE PHOSPHATASE 553 IU/L (46-116); ANION GAP 10 (8-16); ASPARTATE AMINO TRANSFERASE 51 U/L (10-37); BILIRUBIN,TOTAL 0.2 MG/DL (0.1-1.0); BLOOD UREA NITROGEN 14 MG/DL (7-18); BUN/CREATININE RATIO 20.3 (5.4-32.0); CALCIUM 8.1 MG/DL (8.5-10.1); CHLORIDE 107 MMOL/L (99-107); CREATININE 0.69 MG/DL (0.60-1.10); POTASSIUM 4.3 MMOL/L (3.5-5.1); TOTAL CARBON DIOXIDE 22.3 MMOL/L (24-32); TOTAL PROTEIN 7.1 G/DL (6.4-8.2); eGFR > 90 ML/MIN
[2018-08-04 06:00] VITALS: BP 130/76
--- NOTE | 2018-08-04 06:27 | NUR ---
Problems reprioritized. Patient report given, questions answered & plan of care reviewed with ALIZA Ospina.
--- NOTE | 2018-08-04 06:28 | NUR ---
Patient in room PCU 3010. I have received report from ALIZA Rowan and had the opportunity to ask questions and assume patient care.
[2018-08-04 07:21] LABS: TOTAL CELLS COUNTED 100
[2018-08-04 07:22] LABS: ELLIPTOCYTES FEW; PLATELET ESTIMATE NORMAL; SMUDGE CELLS 2+; TOXIC GRANULATION 2+
[2018-08-04] MEDS: K and/or MAG REPLACEMENT MC SCH (08:00)
[2018-08-04] MEDS: potassium Cl 20 mEq SR tablet PO SCH ×2 (08:05→17:12)
[2018-08-04] MEDS: magnesium oxide 400mg tablet PO SCH ×2 (08:07→19:35)
[2018-08-04] MEDS: fluconazole 100mg tablet PO SCH (08:07)
[2018-08-04] MEDS: heparin, porcine 5000 units/ml vial SQ SCH ×2 (08:08→19:37)
[2018-08-04] MEDS: Neutra Phos packet PO SCH ×3 (08:08→19:37)
[2018-08-04] MEDS: HYDROcodone/acetaminophen 10/325mg tab PO PRN (08:15)
[2018-08-04] MEDS: loperamide 2mg capsule PO PRN (08:16)
--- NOTE | 2018-08-04 09:16 | NUR ---
PAGER ID: [phone] MESSAGE: [id number] Huber [place]: Can we get order for PO Ativan so he can go down to MRI. Patient has been refusing to have a new IV put in so we can't do IV Ativan. ALIZA Ospina Ext [phone]
[2018-08-04] MEDS ORDERED: LORazepam 0.5 MG tablet PO ONE (09:20)
[2018-08-04 11:00] VITALS: BP 105/56
[2018-08-04] MEDS ORDERED: LORazepam 1 MG tablet PO ONE (11:30)
[2018-08-04 15:00] VITALS: BP 109/67
[2018-08-04 16:03] LABS: HIV LOG 10 4.261 (.); HIV-1 RNA by PCR 18250 copies/mL (.)
--- NOTE | 2018-08-04 16:05 | NUR ---
PAGER ID: [phone] MESSAGE: [id number]: Are you fine with him having no IV: He will refuse if we try he only wants it done with ultrasound. Or do you want me to contact the PICC nurse to have her put in an IV. He marcelinonly has no IV meds. ALIZA Ospina Ext [phone]
--- NOTE | 2018-08-04 18:29 | NUR ---
Problems reprioritized. Patient report given, questions answered & plan of care reviewed with ALIZA Mason.
--- NOTE | 2018-08-04 18:30 | NUR ---
Patient in room PCU 3010. I have received report from KIMBERLY ABRAMS and had the opportunity to ask questions and assume patient care.
[2018-08-04 19:00] VITALS: BP 103/69
[2018-08-04] MEDS: famotidine 20mg tablet PO SCH (19:36)
[2018-08-04] MEDS ORDERED: TENOFOVIR ALAFENAMIDE PO SCH (21:00)
[2018-08-04] MEDS ORDERED: BICTEGRAVIR PO SCH (21:00)
[2018-08-04] MEDS ORDERED: EMTRICITABINE PO SCH (21:00)
[2018-08-04 23:00] VITALS: BP 109/71
[2018-08-04] MEDS: temazepam 15mg capsule PO PRN (23:57)
[2018-08-05] MEDS ORDERED: VANCOMYCIN LEVEL IV ONE (00:30)
[2018-08-05] MEDS: clindamycin 150mg capsule PO SCH ×2 (02:10→07:47)
[2018-08-05] MEDS: HYDROcodone/acetaminophen 10/325mg tab PO PRN (02:11)
[2018-08-05 03:00] VITALS: BP 112/56
--- NOTE | 2018-08-05 06:08 | NUR ---
Problems reprioritized. Patient report given, questions answered & plan of care reviewed with KIMBERLY ABRAMS.
--- NOTE | 2018-08-05 06:10 | NUR ---
Patient in room PCU 3010. I have received report from ALIZA Mason and had the opportunity to ask questions and assume patient care.
[2018-08-05 06:29] LABS: BASOPHILS % (AUTO) 0.5 % (0-1); EOSINOPHILS % (AUTO) 0.1 % (0-6); HEMATOCRIT 41.5 % (42.0-52.0); HEMOGLOBIN 13.4 g/dl (14.0-17.9); LYMPHOCYTES # (AUTO) 0.5 X10'3 (1.1-4.8); LYMPHOCYTES % (AUTO) 23.8 % (21-51); MEAN CORPUSCULAR HEMOGLOBIN 29.2 PG (27.0-31.0); MEAN CORPUSCULAR HGB CONC 32.4 % (33.0-36.5); MEAN CORPUSCULAR VOLUME 90.3 FL (78-98); MEAN PLATELET VOLUME 8.1 FL (7.4-10.4); MONOCYTES # (AUTO) 0.3 X10'3 (0-0.9); MONOCYTES % (AUTO) 11.5 % (2-12); NEUTROPHILS # (AUTO) 1.5 X10'3 (1.8-7.7); NEUTROPHILS % (AUTO) 64.1 % (42-75); PLATELET COUNT 224 X10'3 (140-440); RED BLOOD COUNT 4.59 X10'6 (4.70-6.10); WHITE BLOOD COUNT 2.3 X10'3 (4.5-11.0)
[2018-08-05 06:42] LABS: ALBUMIN 2.9 G/DL (3.4-5.0); ANION GAP 9 (8-16); BLOOD UREA NITROGEN 10 MG/DL (7-18); BUN/CREATININE RATIO 16.1 (5.4-32.0); CALCIUM 8.3 MG/DL (8.5-10.1); CHLORIDE 100 MMOL/L (99-107); CREATININE 0.62 MG/DL (0.60-1.10); GLUCOSE 81 MG/DL (70-104); MAGNESIUM 1.9 MG/DL (1.5-2.4); SODIUM 137 MMOL/L (135-145); TOTAL CARBON DIOXIDE 27.6 MMOL/L (24-32); eGFR > 90 ML/MIN
[2018-08-05 07:15] LABS: LARGE PLATELETS FEW; PLATELET ESTIMATE NORMAL; TOTAL CELLS COUNTED 100; TOXIC GRANULATION 1+
[2018-08-05] MEDS: K and/or MAG REPLACEMENT MC SCH (07:40)
[2018-08-05] MEDS: Neutra Phos packet PO SCH (07:47)
[2018-08-05] MEDS: potassium Cl 20 mEq SR tablet PO SCH (07:47)
[2018-08-05] MEDS: heparin, porcine 5000 units/ml vial SQ SCH (07:47)
[2018-08-05] MEDS: fluconazole 100mg tablet PO SCH (07:47)
[2018-08-05] MEDS: magnesium oxide 400mg tablet PO SCH (07:47)
[2018-08-05 11:00] VITALS: BP 110/56
[2018-08-05] MEDS ORDERED: FLUC100T9 PO (11:09)
[2018-08-05] MEDS ORDERED: CLE150C PO (11:09)
[2018-08-05] MEDS ORDERED: PRED20TA PO (11:09)
--- NOTE | 2018-08-05 11:26 | NUR ---
Meds called into [facility] [address] per patient request.
--- NOTE | 2018-08-05 12:40 | NUR ---
Patient discharged. Stable per MD per DC. Educated on meds and follow-up.
== END 2018-08-05 11:56 | disposition home or self-care (01) | DRG 974 ==
LOC: ER 17:07 → ED HOLD 20:56 → PCU 3S 22:39
PROVIDERS: ADMIT Family Medicine; ATTEND Family Medicine
DX: B20 Human immunodeficiency virus [HIV] disease (principal); E43 Unspecified severe protein-calorie malnutrition; B37.0 Candidal stomatitis; L03.113 Cellulitis of right upper limb; Z68.1 Body mass index [BMI] 19.9 or less, adult; L02.511 Cutaneous abscess of right hand; L03.011 Cellulitis of right finger; B95.62 Methicillin resistant Staphylococcus aureus infection as the cause of diseases classified elsewhere; E87.6 Hypokalemia; E83.42 Hypomagnesemia; E83.39 Other disorders of phosphorus metabolism; G62.9 Polyneuropathy, unspecified; F40.240 Claustrophobia; I45.81 Long QT syndrome; Z60.2 Problems related to living alone; E86.0 Dehydration; I10 Essential (primary) hypertension; F12.90 Cannabis use, unspecified, uncomplicated; Z91.19 Patient's noncompliance with other medical treatment and regimen; Z88.8 Allergy status to other drugs, medicaments and biological substances; Z87.01 Personal history of pneumonia (recurrent)
CPT/HCPCS: 36415; 70200; 70551; 71045; 72148; 80048; 80053; 80061; 80202; 80305; 81001; 82272; 83036; 83605; 83690; 83735; 83880; 84100; 84132; 84443; 84484; 85025; 85610; 85730; 86361; 87040; 87045; 87046; 87070; 87077; 87186; 87324; 87449; 87535; 89055; 93005; 96374; 99285; G0378; J0696; J1644; J2060; J2405; J3370; J3480; J7030

== ENCOUNTER 2018-08-10 12:39 | Outpatient (CLI) | payer MEDICARE, MEDICAID ==
[~2018-08-10 12:39] MED LIST changes: -BACDS PO; +BICT1TAB PO; +CLE150C PO; +FLUC100T9 PO; -FLUC200T PO; +HYDR-4353 PO; +ONDA4TAB6 PO; +PRED20TA PO
[2018-08-10] MEDS ORDERED: gadopentetate dimeglumine 7.5 MMOL/15 ML syringe ONE ×2 (14:10→14:11)
== END 2018-08-10 23:59 | disposition home or self-care (01) ==
LOC: RAD 12:39
PROVIDERS: ATTEND Internal Medicine
DX: G93.89 Other specified disorders of brain (principal); F17.200 Nicotine dependence, unspecified, uncomplicated; R29.898 Other symptoms and signs involving the musculoskeletal system
CPT/HCPCS: 70553; A9579